=== PATIENT | male | born 2005 | race Caucasian/White ===

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

== ENCOUNTER 2025-06-18 15:30 | Emergency (ER) | payer OTHER, SELFPAY ==
[2025-06-18 15:46] VITALS: BP 137/84; PULSE 90; RESP 16; TEMP 36.8; O2SAT 99; BMI 38.9
--- NOTE | 2025-06-18 16:23 | XRR_ITS ---
PROCEDURE INFORMATION: Exam: XR Left Finger(s) Exam date and time: 06/18/2025 4:39 PM Age: 20 years old Clinical indication: Finger(s); Pain/swelling to left distal 2nd digit; Small cuts from working x 2 weeks ago; Digit is erythemic and has very limited rom TECHNIQUE: Imaging protocol: Radiologic exam of the left fingers. Views: Minimum 2 views. COMPARISON: No relevant prior studies available. FINDINGS: Bones/joints: No acute fracture or subluxation. No periosteal reaction or callus formation. Soft tissues: No radiodense foreign bodies XR/XR finger LT min 2V [id number] IMPRESSION: No acute fracture or subluxation.
--- NOTE | 2025-06-18 16:45 | ED_ITS ---
HPI - Extremity Problem 2 General: Chief complaint: Extremity Problem,Nontraumatic Stated complaint: L index finger swelling, sent by urgent care Time Seen by Provider: 06/18/25 16:23 History of Present Illness: Patient is a 20-year-old gentleman without medical issues, multiple scratches on his hands from hard work, presents with swelling of his left index finger. This became worse on Thursday, 5 days ago. He did have some movement at that time, however now does not have full flexion. Associated symptoms: Deny fever(s) Related Data Previous Rx's ?Medication ?Instructions ?Recorded doxycycline hyclate 100 mg capsule 100 mg PO BID 14 da ys #28 caps 06/18/25 Allergies Allergy/AdvReac Type Severity Reaction Status Date / Time No Known Allergies Allergy Verified 06/18/25 15:05 Review of Systems 2 General: Reports: 10 or more systems reviewed and unremarkable except in HPI and below Const: Denies: fever(s) or chills Eyes: Denies: change in vision or blurry vision Resp: Denies: dyspnea or non-productive cough GI: Denies: abdominal pain, nausea or vomiting : Denies: flank pain or difficulty urinating Musc: Reports: extremity pain, joint pain, joint swelling and joint stiffness PFSH ED 2 PFSH: Social History Smoking and tobacco/nicotine status: never used tobacco/nicotine Physical Exam 2 Const: COMMON NORMALS: no acute distress, average body habitus and patient oriented x3 HENMT: COMMON NORMALS: normocephalic and atraumatic HEAD & SCALP: n ormocephalic and atraumatic Eye: COMMON NORMALS: Equal, round and reactive pupils present and EOMs intact bilaterally PUPIL: Yes Equal, round and reactive pupils present Neck/C-Spine: COMMON NORMALS: full ROM and no lymphadenopathy Lymph: LYMPHATIC: no lymphadenopathy noted Chest: COMMONS NORMALS: normal inspection of the chest and normal palpation of entire chest wall Resp: COMMON NORMALS: normal respiratory effort, No retractions and clear to auscultation bilaterally AUSCULTATION: clear to auscultation bilaterally Cardio: COMMON NORMALS: regular rate and regular rhythm RATE: regular rate RHYTHM: regular rhythm GI: COMMON NORMALS: Normal to inspection, nondistended, normoactive bowel sounds present, Soft to palpation and non-tender PALPATION: Yes Soft to palpation : COMMON NORMALS: Yes no CVA tenderness BLADDER/KIDNEY EXAM: Yes no CVA tenderness Back/Pelvis: COMMON NORMALS: no CVA tenderness Extremity: COMMON NORMALS: negative for full ROM LEFT UPPER EXTREMITY: Yes hand & digits Left hand and digits: Yes inspection (Edema as compared to other fingers), Yes palpation (Mild edema), Yes ROM (No flexion. Finger remains in extension), Yes neurovascular exam (Capillary refill intact) and Yes tendon exam (Unable to evaluate due to edema and inability for ROM) Neuro: COMMON NORMALS: patient oriented x3 Psych: COMMON NORMALS: mental status grossly normal and Normal thought process present THOUGHT PROCESS: Normal thought process present Skin: COMMON NORMALS: no rashes or lesions noted and no wounds GENERAL SKIN EXAM: no rashes or lesions noted Course 2 Reevaluation(s): Reevaluation #1: Patient updated. No change Consultations: Consultation #1: Attempted locate head surgeon x 3. Consultation #2: 2 hours later I was able to discussed wi miguel Weber,that we will be in the office on Thursday, recommends doxycycline and follow-up on Thursday in the office. Vital Signs: Vital signs: Vital Signs Temperature 98.4 F 06/18/25 22:31 Pulse Rate 104 H 06/18/25 22:31 Respiratory Rate 17 06/18/25 22:31 Blood Pressure 114/60 06/18/25 22:31 Pulse Oximetry 96 06/18/25 22:31 [facility] 06/18/25 15:46 MDM - Extremity (Nontraumatic) Medical Decision Making Patient is a 20-year-old gentleman with 2-3 days of worsening flexion and extension, edema, and some pain. He does not have civic injury, however multiple cuts on his left and right hands. Discussed with hand specialist at [place] for follow-up outpatient. Recommend follow-up on Thursday. Patient is to call tomorrow to schedule follow-up for Thursday. Placed on doxycycline for MRSA coverage, vancomycin x 1. Medical Records I reviewed the patient's medical records. Lab Data I reviewed the patient's lab results. 06/18/25 20:20 06/18/25 20:20 Radiology Impressions Finger X-Ray 06/18/25 16:23 IMPRESSION: No acute fracture or subluxation. Laboratory Results WBC 10.85 10^3/uL (3.29-11.43) 06/18/25 20:20 RBC 5.96 10^6/uL (3.85-5.65) H 06/18/25 20:20 Hgb 16.90 g/dL (11.27-16.99) 06/18/25 20:20 Hct 49.4 % (37-53) 06/18/25 20:20 MCV 82.9 fl (82-101) 06/18/25 20:20 MCH 28.4 pg (27-33) 06/18/25 20:20 MCHC 34.2 g/dL (30-55) 06/18/25 20:20 RDW 12.8 % (12.1-15.1) 06/18/25 20:20 Plt Count 277 10^3/cmm (157-399) 06/18/25 20:20 MPV 9.1 fL (7.4-10.4) 06/18/25 20:20 Neut % (Auto) 63.2 % 06/18/25 20:20 Lymph % (Auto) 29.3 % 06/18/25 20:20 [place] % (Auto) 6.3 % 06/18/25 20:20 Eos % (Auto) 0.6 % 06/18/25 20:20 Baso % (Auto) 0.4 % 06/18/25 20:20 Neut # (Auto) 6.86 10^3/uL (1.8-7.7) 06/18/25 20:20 Lymph # (Auto) 3.2 10^3/uL (0.8-4.8) 06/18/25 20:20 [place] # (Auto) 0.7 10^3/uL (0.2-0.9) 06/18/25 20:20 Eos # (Auto) 0.1 10^3/uL (0.0-0.8) 06/18/25 20:20 Baso # (Auto) 0.0 10^3/uL (0.0-0.1) 06/18/25 20:20 Nucleated RBC % (auto) 0 % 06/18/25 20:20 Nucleated RBCs # 0.0 /100WBC 06/18/25 20:20 Sodium 139 mmol/L (136-145) 06/18/25 20:20 Potassium 4.0 mmol/L (3.5-5.1) 06/18/25 20:20 Chloride 102 mmol/L (98-107) 06/18/25 20:20 Carbon Dioxide 25 mmol/L (22-29) 06/18/25 20:20 Anion Gap 16.0 (5-19) 06/18/25 20:20 BUN 19 mg/dL (6-20) 06/18/25 20:20 Creatinine 1.2 mg/dL (0.7-1.2) 06/18/25 20:20 GFR Calculation 75.7 mL/min (90-130) L 06/18/25 20:20 Glucose 89 mg/dL (65-115) 06/18/25 20:20 Calculated Osmolality 290 mOsm/kg (285-295) 06/18/25 20:20 Calcium 9.7 mg/dL (8.5-10.5) 06/18/25 20:20 Total Bilirubin 0.5 mg/dL (0.15-1.2) 06/18/25 20:20 AST 29 U/L (0-40) 06/18/25 20:20 ALT 38 U/L (0-41) 06/18/25 20:20 Alkaline Phosphatase 83 U/L (40-130) 06/18/25 20:20 Total Protein 7.5 g/dL (6.6-8.7) 06/18/25 20:20 Albumin 4.6 g/dL (3.5-5.2) 06/18/25 20:20 Globulin 2.9 g/dL (1.3-4.6) 06/18/25 20:20 All radiology interpretation(s) finalized by discharge Discharge Plan Discharge Patient Disposition: Home Clinical Impression: Finger pain, left Condition: Stable Prescriptions: New doxycycline hyclate 100 mg capsule 100 mg PO BID 14 Days Qty: 28 0RF Discharge Orders: Discharge ED (Routine); Ordered 06/18/25 Ordered By: Denise Amador Referrals: dEy Gaitan MD [Primary Care Provider, [facility]] Discharge Diet: Usual diet Discharge Activity: Resume usual activity Patient Instructions: Patient Portal & Arjun Instructions Activity Restrictions/Additional Instructions: Call Dr. Clair Weber office in a.m. [phone]. Contact early in the morning when the office opens. She will see you on Thursday, please tell the office staff we discussed you by phone on Thursday and Dr. Weber will see you on Thursday. Continue medication as directed. Obtain early in the morning. Take with probiotic daily or active culture yogurt to avoid infectious diarrhea Your antibiotic does cause increased sunburning and intolerance with mouth. Please avoid sun or wear sunblock, and caution taking with milk Return to ED for worsening pain, worsening tenderness, worsening redness, or temperature greater than 100.4 ?F Print Language: [place] Coding Level of Care Code ED Light Cleaner for Muriel Simeon
[2025-06-18] MEDS: HYDROcodone-acetaminophen 5-325 mg Tablet 1 TAB PO (20:16)
[2025-06-18 20:33] LABS: Hematocrit 49.4 % (37-53); Hemoglobin 16.90 g/dL (11.27-16.99); Mean Corpuscular HGB Conc 34.2 g/dL (30-55); Mean Corpuscular Hemoglobin 28.4 pg (27-33); Mean Corpuscular Volume 82.9 fl (82-101); Nucleated Red Blood Cells % 0 %; Platelet Count 277 10^3/cmm (157-399); Red Blood Count 5.96 10^6/uL (3.85-5.65); White Blood Count 10.85 10^3/uL (3.29-11.43)
[2025-06-18 20:54] LABS: Alanine Aminotransferase 38 U/L (0-41); Albumin Level 4.6 g/dL (3.5-5.2); Alkaline Phosphatase 83 U/L (40-130); Anion Gap 16.0 (5-19); Aspartate Amino Transferase 29 U/L (0-40); Blood Urea Nitrogen 19 mg/dL (6-20); Calcium 9.7 mg/dL (8.5-10.5); Carbon Dioxide 25 mmol/L (22-29); Chloride 102 mmol/L (98-107); Creatinine Clr Calc Pharmacy 134.7063; Globulin 2.9 g/dL (1.3-4.6); Glucose 89 mg/dL (65-115); Osmolality Calculated 290 mOsm/kg (285-295); Potassium 4.0 mmol/L (3.5-5.1); Sodium 139 mmol/L (136-145); Total Protein 7.5 g/dL (6.6-8.7)
[2025-06-18 22:31] VITALS: BP 114/60; PULSE 104; RESP 17; TEMP 36.9; O2SAT 96
== END 2025-06-18 22:33 | disposition home or self-care (01) ==
PROVIDERS: Emergency Provider Physician Assistant; PCP Family Medicine
DX: M79.645 Pain in left finger(s) (principal)
CPT/HCPCS: 73140; 80053; 85025; 99284; J3372; J9999